=== PATIENT | female | born 1995 | race Caucasian/White ===

== ENCOUNTER 2021-03-25 21:42 | Emergency (ER) | payer BC, OTHER ==
[~2021-03-25] VITALS: Ht 149.9 cm; Wt 44.0 kg
[2021-03-25 22:29] LABS: URINE CLARITY CLOUDY; URINE COLOR ORANGE
[2021-03-25 22:31] LABS: MUCUS None Seen strn/LPF (None Seen); SQUAMOUS >10 Many /LPF (0-3)
[2021-03-25 22:32] LABS: WBC CLUMPS Few (None Seen)
[2021-03-25 22:33] LABS: CASTS None Seen /LPF (None Seen); CRYSTALS None Seen /LPF (None Seen); URINE RBC 0-2 Rare /HPF (0-2)
[2021-03-25] MEDS ORDERED: CEPHALEXIN 250250 M1 PO (23:03)
[2021-03-25 23:09] VITALS: BP 122/64
== END 2021-03-25 23:09 | disposition home or self-care (01) ==
LOC: M.ERS 21:42
PROVIDERS: Emergency Medicine
DX: N39.0 Urinary tract infection, site not specified (principal)